=== PATIENT | female | born 1985 | race Caucasian/White ===

== ENCOUNTER 2016-10-29 01:49 | Inpatient (IN) | payer BC ==
[2016-10-29] MEDS ORDERED: Lactated Ringers 1,000 ML ONE (01:55)
[2016-10-29] MEDS ORDERED: Oxytocin/Lactated Ringers 10 UNIT/1,000 ML BAG IV ONE (02:02)
[2016-10-29] MEDS ORDERED: Lidocaine 1% 50 ML MDV ONE (02:46)
[2016-10-29] MEDS ORDERED: Sodium Chloride 0.9% 10 ML Syringe FLUSH PRN (03:22)
[2016-10-29] MEDS ORDERED: Lidocaine 1% 50 ML MDV INJECT ONE (03:22)
[2016-10-29] MEDS ORDERED: Oxytocin/Lactated Ringers 10 UNIT/1,000 ML BAG IV SCH (03:30)
[2016-10-29] MEDS ORDERED: Lactated Ringers 1,000 ML IV SCH (03:30)
--- NOTE | 2016-10-29 03:42 | PCM.SN ---
- Free Text/Narrative Note: Delivery note: She was admitted at approximately 0130 hrs. on 10/29/2016 at approximately 8 cm and in active labor. She progressed to complete shortly thereafter and had 0215 hours had artificial rupture membranes with resultant clear amniotic fluid. Complete cervical dilation was felt to occur at about 0220 hours. Patient then proceeded to push for approximately the next 45 minutes. At this time delivery the baby was noted to be in occiput posterior position. As the baby was a midline episiotomy was made after infiltration with approximately 10 mL of lidocaine 1%. Baby delivered in direct occiput posterior position at 0305 hrs. The baby weighed 3440 g (7 lbs. 9 oz) and had Apgars of 8 and 9. Baby was then placed on mom's abdomen. The cord was noted to be wrapped around one of the baby's legs. Cords clamped 2 cut and cord blood was obtained. Episiotomy is repaired in a routine fashion using 3-0 Monocryl suture. Patient tolerated this reasonably well. The placenta delivered spontaneously in a Ortiz presentation. It appeared intact and complete. The umbilical cord had 3 vessels. Pitocin was administered after delivery of the baby to facilitate increase in uterine tone and decrease bleeding. Patient plans to nurse. Estimated blood loss: 300 mL. Condition: Good
[2016-10-29] MEDS ORDERED: Witch Hazel Medicated Pads 100/Jar TOP PRN (03:47)
[2016-10-29] MEDS ORDERED: Acetaminophen 325 MG Tab PO PRN (03:47)
[2016-10-29] MEDS ORDERED: Lanolin 100% Cream 7 GM Tube TOP PRN (03:47)
[2016-10-29] MEDS ORDERED: Docusate Sodium 100 MG Cap PO PRN (03:47)
[2016-10-29] MEDS ORDERED: Benzocaine/Menthol 20%-0.5% Spray 56 GM Canister TOP PRN (03:47)
[2016-10-29] MEDS: Ibuprofen 600 MG Tab PO PRN ×3 (03:52→16:37)
--- NOTE | 2016-10-29 09:10 | HP ---
DATE OF ADMISSION: 10/29/2016 ADMISSION DIAGNOSIS: 38 and 6/7th weeks intrauterine , active labor with advanced cervical dilation. HISTORY OF PRESENT ILLNESS: The patient is a 31-year-old, 3, now para 2-1-0-3, as this admission history and physical is dictated after her delivery. The patient was admitted to Labor and Delivery at approximately 0130 hours on 10/29/2016, in active labor. She was 8 cm dilated and proceeded to delivery within the next approximately 1 hour. Contractions started earlier in the day. She had a clinic appointment earlier in the day and was found to be 2 to 3 cm dilated at that time. She was complaining of contractions at that point. PROMOTIONS OFFICER HISTORY: 3, now para 2-1-0-3. Certain last menstrual period was 01/31/2016, giving an CHAIM of 11/06/2016. This LMP dating was supported by 2 ultrasounds. The first one was done on 04/23/2016 at 12 weeks' gestational age. The second one was done on 06/26/2016 at 21 weeks' gestational age. The patient has regular menstrual cycles at q.28 to 30 days. Menarche was at age 11. Positive HCG was on 03/02/2016. She was not on any controls at the time of conception. Her previous deliveries include: 1. Female infant, born 09/16/2012, at 35 weeks gestational age after 3 hours of labor-5 pounds 0 ounce-[place], [place]-child's name is Caio. 2. Female , born 01/26/2014, at 39 weeks gestational age-7 pounds 5 ounces-normal spontaneous vaginal delivery, in [place], [place]. The patient was at bedrest during the latter part of that because of contractions. Child's name is Daphnie. Her course was significant for cervical change and contractions. The patient plans to breastfeed. She declined any genetic evaluation. Her group-B strep screen was negative. She did have some irritable bowel symptomatology. Her first visit was at 11 weeks and 6 days. The patient made good progress during the course of the . Her weight gain was from 124.4 pounds at first visit to 152.2 pounds for a 28-pound weight gain. Her vital signs have been stable throughout the and her fundal height growth was appropriate. laboratory testing shows blood to be A positive with a negative antibody screen. Her hemoglobin at first oleg visit was 13.0 grams/dL. MCV was 81.9. Her platelet count was 196,000. She is rubella immune. RPR is nonreactive. Urine culture initially was unremarkable. Hepatitis B surface antigen and HIV assays were negative. Her Chlamydia and GC cultures were negative. TSH was 1.464 milliunits/L. Second trimester labs included a hemoglobin of 11.6, an MCV of 87.8, and platelets of 207,000. Her 1-hour GTT was normal at 115. Group-B strep screen was negative. The patient had additional labs including an H. pylori on 04/19/2016, which was negative. Two fibronectin and one AmniSure during the course of the returned negative. ALLERGIES: Sulfa, which causes a rash; and penicillin, which causes a rash. PAST MEDICAL HISTORY: 1. Normal spontaneous vaginal delivery x2, one at 35 weeks and one at 39 weeks. 2. Irritable bowel syndrome with occasional diarrhea. 3. History of anxiety, was on medication in the past. 4. Seasonal allergies, for which she has taken Zyrtec. 5. Abnormal Pap smear in 2009 and again in 2016. PAST SURGICAL HISTORY: 1. Appendectomy in 1991. 2. Laparoscopic cholecystectomy in 2004. 3. Left arm axillary area-fatty tumor removal in 2012. 4. Oral surgery-wisdom teeth in 2001. FAMILY HISTORY: Mother and father alive and in generally good health. Two sisters and one brother alive and well. Maternal grandmother is secondary to throat cancer-was a smoker. Maternal grandfather from an [place] in his 60s. Paternal grandmother is alive and well. Paternal grandfather is alive and well. No blood clotting, anesthesia or problems noted in the family, other than a sister has had labor symptoms. Mother also had some hemorrhage problems. REVIEW OF SYSTEMS: SKIN: Negative. CARDIOVASCULAR: No chest pain or exercise intolerance. RESPIRATORY: No problems with infectious symptoms or shortness of breath. BREASTS: Changes associated with only. GI: Irritable bowel symptoms with some diarrhea noted. : Symptoms associated with , changes in body habitus associated with . MUSCULOSKELETAL: Some minimal lower extremity swelling at times, none at the present time. No other concerns noted. NEUROLOGIC: Negative. PHYSICAL EXAMINATION: GENERAL: The patient is a well-developed, well-nourished, pleasant female of stated age, in no acute distress. VITAL SIGNS: At first visit, her height was 5 feet 5 inches, and her weight was 124.4 pounds with a body mass index of 20.3. Her weight at the end of the was 162.2 pounds. Her blood pressure at last visit was 124/70 and heart rate was 123. SKIN: Warm and dry without lesions. LUNGS: Clear with good breath sounds in all lung white. CARDIOVASCULAR: Regular rate and rhythm. The patient is in labor. ABDOMEN: Protuberant in . BREASTS: Exam was deferred. CERVICAL: Exam on admission to the hospital shows cervix to be 8 cm, bulging bag of water, 100% effaced, anterior. Baby in the occiput-posterior position. EXTREMITIES AND NEUROLOGIC: Grossly within normal limits. ASSESSMENT: 1. 38 and 6/7th weeks intrauterine , active labor, with delivery prior to the dictation of this history and physical. 2. Group-B strep screen negative. 3. The patient plans nursing. 4. The patient had midline episiotomy, which was repaired in the routine fashion with lidocaine anesthesia. PLAN: 1. Routine care. 2. Nursing support and nursing diet recommend. 3. Analgesia including acetaminophen and ibuprofen. 4. CBC to be drawn in the a.m. MMODAL /[id number]
--- NOTE | 2016-10-29 10:00 | PCM.SN ---
- Free Text/Narrative Note: delivery note: Subjective: - Lochia appropriate amount. Is voiding and walking. - No further concerns Objective: - Uterus firm and nontender, located at level of umbilicus - Legs nontender with no swelling Assessment: - 31-year-old, G3, now P2103 s/p doing well. PPD 0 (delivered early this morning). - Currently breast feeding Plan: - Routine care
[2016-10-29] MEDS: Prenatal Multivitamin with Calcium/Folic Acid/Iron Tab PO SCH (19:44)
[2016-10-30] MEDS: Ibuprofen 600 MG Tab PO PRN ×3 (00:31→11:44)
[2016-10-30 14:32] VITALS: BP 90/54
[2016-10-30] MEDS: Prenatal Multivitamin with Calcium/Folic Acid/Iron Tab PO SCH (14:39)
--- NOTE | 2016-11-01 13:23 | PCM.DCSUM1 ---
Discharge Summary - Hospital Course Free Text/Narrative:: [facility], [place] [facility] Provider Simple Note Patient Name: JOSÉ MIGUEL MURPHY Date of : 81 Patient Status: Inpatient Attending Provider: Shaggy Rosado Date: 10/29/16 03:35 Initialization Date: 10/29/16 03:35 - Free Text/Narrative Note: Delivery note: She was admitted at approximately 0130 hrs. on 10/29/2016 at approximately 8 cm and in active labor. She progressed to complete shortly thereafter and had 0215 hours had artificial rupture membranes with resultant clear amniotic fluid. Complete cervical dilation was felt to occur at about 0220 hours. Patient then proceeded to push for approximately the next 45 minutes. At this time delivery the baby was noted to be in occiput posterior position. As the baby was a midline episiotomy was made after infiltration with approximately 10 mL of lidocaine 1%. Baby delivered in direct occiput posterior position at 0305 hrs. The baby weighed 3440 g (7 lbs. 9 oz) and had Apgars of 8 and 9. Baby was then placed on mom's abdomen. The cord was noted to be wrapped around one of the baby's legs. Cords clamped 2 cut and cord blood was obtained. Episiotomy is repaired in a routine fashion using 3-0 Monocryl suture. Patient tolerated this reasonably well. The placenta delivered spontaneously in a Ortiz presentation. It appeared intact and complete. The umbilical cord had 3 vessels. Pitocin was administered after delivery of the baby to facilitate increase in uterine tone and decrease bleeding. Patient plans to nurse. Estimated blood loss: 300 mL. Condition: Good HPI Initial Comments: [facility], [place] [facility] Provider Simple Note Patient Name: JOSÉ MIGUEL MURPHY Date of : 81 Patient Status: Inpatient Attending Provider: Shaggy Rosado Date: 10/29/16 03:35 Initialization Date: 10/29/16 03:35 - Free Text/Narrative Note: Delivery note: She was admitted at approximately 0130 hrs. on 10/29/2016 at approximately 8 cm and in active labor. She progressed to complete shortly thereafter and had 0215 hours had artificial rupture membranes with resultant clear amniotic fluid. Complete cervical dilation was felt to occur at about 0220 hours. Patient then proceeded to push for approximately the next 45 minutes. At this time delivery the baby was noted to be in occiput posterior position. As the baby was a midline episiotomy was made after infiltration with approximately 10 mL of lidocaine 1%. Baby delivered in direct occiput posterior position at 0305 hrs. The baby weighed 3440 g (7 lbs. 9 oz) and had Apgars of 8 and 9. Baby was then placed on mom's abdomen. The cord was noted to be wrapped around one of the baby's legs. Cords clamped 2 cut and cord blood was obtained. Episiotomy is repaired in a routine fashion using 3-0 Monocryl suture. Patient tolerated this reasonably well. The placenta delivered spontaneously in a Ortiz presentation. It appeared intact and complete. The umbilical cord had 3 vessels. Pitocin was administered after delivery of the baby to facilitate increase in uterine tone and decrease bleeding. Patient plans to nurse. Estimated blood loss: 300 mL. Condition: Good Brief History: [facility], [place] [facility] . Provider Simple Note. Patient Name : JOSÉ MIGUEL MURPHY Record Number: [id number]. Date of : Patient Status: Inpatient. Attending Provider: Shaggy Rosado FAccount Number : [id number]. Date: 10/29/16 03:35Initialization Date: 10/29/16 03:35. - Free Text/Narrative. Note: Delivery note: She was admitted at approximately 0130 hrs. on 10/29/2016 at approximately 8 cm and in active labor. She progressed to complete shortly thereafter and had 0215 hours had artificial rupture membranes with resultant clear amniotic fluid. Complete cervical dilation was felt to occur at about 0220 hours. Patient then proceeded to push for approximately the next 45 minutes. At this time delivery the baby was noted to be in occiput posterior position. As the baby was a midline episiotomy was made after infiltration with approximately 10 mL of lidocaine 1% . Baby delivered in direct occiput posterior position at 0305 hrs. The baby weighed 3440 g (7 lbs. 9 oz) and had Apgars of 8 and 9. Baby was then placed on mom's abdomen. The cord was noted to be wrapped around one of the baby's legs. Cords clamped 2 cut and cord blood was obtained. Episiotomy is repaired in a routine fashion using 3-0 Monocryl suture. Patient tolerated this reasonably well. The placenta delivered spontaneously in a Ortiz presentation. It appeared intact and complete. The umbilical cord had 3 vessels. Pitocin was administered after delivery of the baby to facilitate increase in uterine tone and decrease bleeding. Patient plans to nurse. Estimated blood loss: 300 mL. Condition: Good - Discharge Data Discharge Date: 10/30/16 Discharge Disposition: Home, Self-Care 01 Condition: Good - Discharge Diagnosis/Problem(s) (1) Occiput posterior presentation of fetus SNOMED Code(s): 81152479 ICD Code: O64.0XX0 - OBSTRUCTED LABOR DUE TO INCMPL ROTATION OF HEAD, UNSP Status: Acute Qualifiers: Fetus number: single or unspecified fetus Qualified Code(s): O64.0XX0 - Obstructed labor due to incomplete rotation of head, not applicable or unspecified (2) 39 weeks gestation of SNOMED Code(s): 65898654 ICD Code: Z3A.39 - 39 WEEKS GESTATION OF Status: Acute (3) 39 weeks gestation of SNOMED Code(s): 79218017 ICD Code: Z3A.39 - 39 WEEKS GESTATION OF Status: Acute (4) Direct occiput posterior presentation of fetus SNOMED Code(s): 529076654 ICD Code: O64.0XX0 - OBSTRUCTED LABOR DUE TO INCMPL ROTATION OF HEAD, UNSP Status: Acute Qualifiers: Fetus number: single or unspecified fetus Qualified Code(s): O64.0XX0 - Obstructed labor due to incomplete rotation of head, not applicable or unspecified - Patient Summary/Data Complications: none Consults: none Hospital Course: uneventful - Patient Instructions Diet: Regular Diet as Tolerated Driving: Do Not Drive (48 hrs) Showering/Bathing: May Shower Notify Provider of: Fever, Increased Pain, Swelling and Redness, Drainage, Nausea and/or Vomiting - Discharge Plan Home Medications: Home Meds Vit 90/Iron Fum/Folic [ Formula] 1 tab PO DAILY 02/07/14 [ History] Acetaminophen/oxyCODONE [Percocet 325-5 MG] 1 - 2 tab PO Q4H PRN #60 tab [Rx] Acetaminophen [Tylenol] 650 mg PO Q6H PRN tablet 10/30/16 [Rx] Benzocaine/Menthol [Dermoplast Pain Relief [place]] 1 spray TOP ASDIRECTED PRN canister 10/30/16 [Rx] Docusate Sodium [Colace] 100 mg PO BID PRN cap 10/30/16 [Rx] Ibuprofen [IJD: Ibuprofen] 600 mg PO Q6H PRN tablet 10/30/16 [Rx] Lanolin [Lansinoh HPA] 1 applic TOP ASDIRECTED PRN tube 10/30/16 [Rx] Witch Letty [Tucks] 1 pad TOP ASDIRECTED PRN pad 10/30/16 [Rx] Patient Handouts: Episiotomy, Home Care Instructions for Mom Referrals: Shaggy Rosado MD [Primary Care Provider] - (6 weeks follow up in clinic. please call for appointment. ) - Discharge Summary/Plan Comment DC Time >30 min.: No - Patient Data Vitals - Most Recent: Last Vital Signs Temp 98.2 F 10/30/16 13:37 Pulse 77 10/30/16 13:37 Resp 18 10/30/16 13:37 BP 90/54 L 10/30/16 13:37 Pulse Ox 98 10/30/16 13:37 Weight - Most Recent: 150 lb Med Orders - Current: Current Medications Discontinued Medications Acetaminophen (Tylenol) 650 mg PO Q4H PRN PRN Reason: mild pain or fever Benzocaine/Menthol (Dermoplast Pain Relief [place]) 0 gm TOP ASDIRECTED PRN PRN Reason: Perineal Comfort Measure Last Admin: 10/29/16 03:53 Dose: 1 can Docusate Sodium (Colace) 100 mg PO BID PRN PRN Reason: Constipation Last Admin: 10/29/16 19:44 Dose: 100 mg Emollient Ointment (Lansinoh Hpa) 0 gm TOP ASDIRECTED PRN PRN Reason: Sore Nipples Last Admin: 10/29/16 17:12 Dose: 1 applic Oxytocin/Lactated Ringer's (Pitocin In Lr 10 Units/1,000 Ml) Confirm Administered Dose 10 unit in 1,000 mls @ as directed IV .STK-MED ONE Stop: 10/29/16 02:03 Last Admin: 10/29/16 03:07 Dose: 1 unit Lactated Ringer's (Ringers, Lactated) 1,000 mls @ 100 mls/hr IV ASDIRECTED DAYANA Oxytocin/Lactated Ringer's (Pitocin In Lr 10 Units/1,000 Ml) 10 unit in 1,000 mls @ 500 mls/hr IV .CONTINUOUS DAYANA Ibuprofen (Motrin) 600 mg PO Q4H PRN PRN Reason: Mild pain or fever Last Admin: 10/30/16 11:44 Dose: 600 mg Lidocaine HCl (Xylocaine 1%) Confirm Administered Dose 50 ml .ROUTE .STK-MED ONE Stop: 10/29/16 02:47 Last Admin: 10/29/16 03:02 Dose: 50 ml Lidocaine HCl (Xylocaine 1%) 50 ml INJECT ONETIME ONE Stop: 10/29/16 03:23 Last Admin: 10/29/16 03:47 Dose: Not Given Prenat Multivit/Adult Education Professional/Iron/Folic Ac ( Plus Iron) 1 each PO DAILY [facility] Last Admin: 10/30/16 14:39 Dose: Not Given Sodium Chloride (Saline Flush) 10 ml FLUSH ASDIRECTED PRN PRN Reason: Keep Vein Open Wittaryn Saenz (Tucks) 1 pad TOP ASDIRECTED PRN PRN Reason: Hemorrhoid pain Last Admin: 10/29/16 03:53 Dose: 1 can *Q Meaningful Use (DIS) - VTE *Q VTE Criteria *Q: - Stroke *Q Stroke Criteria *Q: - AMI *Q AMI Criteria *Q:
== END 2016-10-30 17:00 | disposition home or self-care (01) | DRG 560 ==
LOC: JD.OBCHECK 01:49 → JD.OB 01:49 → JD.OBCHECK 01:59 → JD.OB 02:00 → OBSVTOIN 03:05 → JD.OB 03:05
PROVIDERS: ADMIT Obstetrics & Gynecology; ATTEND Obstetrics & Gynecology
PROC: 10E0XZZ Delivery of Products of Conception, External Approach (ICD-10-PCS; principal; 2016-10-29)
PROC: 10907ZC Drainage of Amniotic Fluid, Therapeutic from Products of Conception, Via Natural or Artificial Opening (ICD-10-PCS; 2016-10-29)
PROC: 0W8NXZZ Division of Female Perineum, External Approach (ICD-10-PCS; 2016-10-29)
DX: O70.9 Perineal laceration during delivery, unspecified (principal); Z3A.39 39 weeks gestation of pregnancy; Z37.0 Single live birth; Z88.0 Allergy status to penicillin; Z88.2 Allergy status to sulfonamides
CPT/HCPCS: 36415; 59409; 85027; A9270-GY; J2590; J7120

== ENCOUNTER 2020-11-06 03:04 | Inpatient (IN) | payer BC ==
[~2020-11-06 03:04] MED LIST: ePHEDrine 50 MG/ML SDV ONE
[2020-11-06] MEDS ORDERED: Sodium Chloride 0.9% 10 ML Syringe FLUSH PRN (03:14)
[2020-11-06] MEDS ORDERED: Nalbuphine 10 MG/1 ML Vial IVPUSH PRN (03:14)
[2020-11-06] MEDS ORDERED: Acetaminophen 325 MG Tab PO PRN ×2 (03:14→13:22)
[2020-11-06] MEDS ORDERED: Calcium Carbonate 500 MG Tab.Chew PO PRN (03:14)
[2020-11-06] MEDS ORDERED: Ondansetron 4 MG/2 ML SDV IVPUSH PRN (03:14)
[2020-11-06] MEDS ORDERED: Oxytocin/Lactated Ringers 10 UNIT/1,000 ML BAG IV SCH ×2 (03:15)
[2020-11-06] MEDS: Lactated Ringers 1,000 ML IV SCH ×2 (04:06→06:32)
[2020-11-06] MEDS ORDERED: fentaNYL 100 MCG/2 ML SDV EPIDUR PRN (06:14)
[2020-11-06] MEDS ORDERED: diphenhydrAMINE 50 MG/ML SDV IVPUSH PRN (06:14)
[2020-11-06] MEDS ORDERED: Bupivacaine/fentaNYL/NS 100 ML Bag EPIDUR PRN (06:14)
[2020-11-06] MEDS ORDERED: ePHEDrine 50 MG/ML SDV IVPUSH PRN (06:14)
--- NOTE | 2020-11-06 06:44 | PCM.PREANE ---
Preanesthetic Assessment - Procedure Proposed Procedure: Epidural - Anesthesia/Transfusion/Family Hx Anesthesia History: Prior Anesthesia Without Reaction Family History of Anesthesia Reaction: No Transfusion History: No Prior Transfusion(s) Intubation History: Unknown - Physical Assessment NPO Status Date: 11/06/20 Vital Signs: Last Vital Signs Temp 36.7 C 11/06/20 03:20 Pulse 78 11/06/20 03:20 Resp 16 11/06/20 03:20 BP 114/73 11/06/20 03:20 Pulse Ox 99 11/06/20 03:20 Height: 1.65 m Weight: 77.882 kg ASA Class: 2 Mental Status: Alert & Oriented x3 - Lab Values: Laboratory Last Values WBC 7.20 K/mm3 (3.98-10.04) 11/06/20 03:30 RBC 4.34 M/mm3 (3.98-5.22) 11/06/20 03:30 Hgb 12.4 gm/dl (11.2-15.7) 11/06/20 03:30 Hct 37.6 % (34.1-44.9) 11/06/20 03:30 MCV 86.6 fl (79.4-94.8) D 11/06/20 03:30 MCH 28.6 pg (25.6-32.2) 11/06/20 03:30 MCHC 33.0 g/dl (32.2-35.5) 11/06/20 03:30 RDW Std Deviation 42.9 fL (36.4-46.3) 11/06/20 03:30 Plt Count 142 K/mm3 (182-369) L 11/06/20 03:30 MPV 10.3 fl (9.4-12.3) 11/06/20 03:30 Neut % (Auto) 64.6 % (34.0-71.1) 11/06/20 03:30 Lymph % (Auto) 23.2 % (19.3-51.7) 11/06/20 03:30 [place] % (Auto) 9.3 % (4.7-12.5) 11/06/20 03:30 Eos % (Auto) 1.9 (0.7-5.8) 11/06/20 03:30 Baso % (Auto) 0.3 % (0.1-1.2) 11/06/20 03:30 Neut # (Auto) 4.65 K/mm3 (1.56-6.13) 11/06/20 03:30 Lymph # (Auto) 1.67 K/mm3 (1.18-3.74) 11/06/20 03:30 [place] # (Auto) 0.67 K/mm3 (0.24-0.36) H 11/06/20 03:30 Eos # (Auto) 0.14 K/mm3 (0.04-0.36) 11/06/20 03:30 Baso # (Auto) 0.02 K/mm3 (0.01-0.08) 11/06/20 03:30 SARS-CoV-2 RNA (DONNA) Negative (NEGATIVE) 11/06/20 03:25 Blood Type A POSITIVE 11/06/20 03:30 Gel Antibody Screen Negative 11/06/20 03:30 Above labs reviewed and noted and within acceptable ranges to proceed with epidural if desired. - Allergies Allergies/Adverse Reactions: Allergies Allergy/AdvReac Type Severity Reaction Status Date / Time Penicillins Allergy Rash Verified 11/06/20 04:24 Sulfa (Sulfonamide Allergy Rash Verified 11/06/20 04:24 Antibiotics) - Anesthesia Plan Pre-Op Medication Ordered: None - Acknowledgements Anesthesia Type Planned: Epidural Pt an Appropriate Candidate for the Planned Anesthesia: Yes Alternatives and Risks of Anesthesia Discussed w Pt/Guardian: Yes Pt/Guardian Understands and Agrees with Anesthesia Plan: Yes PreAnesthesia Questionnaire HEENT History: Reports: None Other HEENT History: Conductive hearing loss left ear Gastrointestinal History: Reports: Irritable Bowel Syndrome INVENTORY CONTROL ASSISTANT History: Reports: Musculoskeletal History: Reports: None Psychiatric History: Reports: Anxiety - Past Surgical History HEENT Surgical History: Reports: Oral Surgery GI Surgical History: Reports: Appendectomy, Cholecystectomy Musculoskeletal Surgical History: Reports: Other (See Below) Other Musculoskeletal Surgeries/Procedures:: left arm fatty tumor removed - SUBSTANCE USE Tobacco Use Status *Q: Never Tobacco User Tobacco Use Within Last Twelve Months: No Second Hand Smoke Exposure: No Recreational Drug Use History: No - HOME MEDS Home Medications: Home Meds Vit 90/Iron Fum/Folic [ Formula] 1 tab PO DAILY 02/07/14 [History] Omeprazole Magnesium [Prilosec] 1 pkt PO DAILY PRN 11/06/20 [History] - CURRENT (IN HOUSE) MEDS Current Meds: Current Medications Acetaminophen (Acetaminophen 325 Mg Tab) 650 mg PO Q4H PRN PRN Reason: Pain (Mild 1-3) and fever Calcium Carbonate/Glycine (Calcium Carbonate 500 Mg Tab.Chew) 1,000 mg PO Q2H PRN PRN Reason: Indigestion Diphenhydramine HCl (Diphenhydramine 50 Mg/Ml Sdv) 25 mg IVPUSH Q6H PRN PRN Reason: pruritis Ephedrine Sulfate (Ephedrine 50 Mg/Ml Sdv) 5 mg IVPUSH ASDIRECTED PRN PRN Reason: Hypotension Fentanyl (Fentanyl 100 Mcg/2 Ml Sdv) 100 mcg EPIDUR Q3H PRN PRN Reason: Pain Last Admin: 11/06/20 06:26 Dose: 100 mcg Documented by: Fentanyl/Bupivacaine HCl (Bupivacaine/Fentanyl/Ns 100 Ml Bag) 100 ml EPIDUR ASDIRECTED PRN PRN Reason: Pain Last Admin: 11/06/20 06:27 Dose: 100 ml Documented by: Oxytocin/Lactated Ringer's (Pitocin In Lr 10 Units/1,000 Ml) 10 unit in 1,000 mls @ 12 mls/hr IV TITRATE DAYANA; Protocol Last Titration: 11/06/20 04:45 Dose: 4 munits/min, 24 mls/hr Documented by: Oxytocin/Lactated Ringer's (Pitocin In Lr 10 Units/1,000 Ml) 10 unit in 1,000 mls @ 500 mls/hr IV .CONTINUOUS DAYANA Lactated Ringer's (Ringers, Lactated) 1,000 mls @ 100 mls/hr IV ASDIRECTED DAYANA Last Admin: 11/06/20 06:32 Dose: 100 mls/hr Documented by: Nalbuphine HCl (Nalbuphine 10 Mg/1 Ml Vial) 10 mg IVPUSH Q2H PRN PRN Reason: Pain Ondansetron HCl (Ondansetron 4 Mg/2 Ml Sdv) 4 mg IVPUSH Q4H PRN PRN Reason: Nausea/Vomiting Sodium Chloride (Sodium Chloride 0.9% 10 Ml Syringe) 10 ml FLUSH ASDIRECTED PRN PRN Reason: Keep Vein Open
--- NOTE | 2020-11-06 06:53 | PCM.PREANE ---
Preanesthetic Assessment - Procedure Proposed Procedure: epidural - Anesthesia/Transfusion/Family Hx Anesthesia History: Prior Anesthesia Without Reaction Family History of Anesthesia Reaction: No Transfusion History: No Prior Transfusion(s) Intubation History: Unknown - Review of Systems General: Fatigue Pulmonary: No Symptoms Cardiovascular: No Symptoms Gastrointestinal: Abdominal Pain (labor) Neurological: No Symptoms Other: Reports: None - Physical Assessment NPO Status Date: 11/06/20 Vital Signs: Last Vital Signs Temp 36.7 C 11/06/20 03:20 Pulse 78 11/06/20 03:20 Resp 16 11/06/20 03:20 BP 114/73 11/06/20 03:20 Pulse Ox 99 11/06/20 03:20 Height: 1.65 m Weight: 77.882 kg ASA Class: 2 Mental Status: Alert & Oriented x3 Airway Class: Mallampati = 1 Dentition: Reports: Normal Dentition Thyro-Mental Finger Breadths: 3 Mouth Opening Finger Breadths: 3 ROM/Head Extension: Full Lungs: Clear to Auscultation, Normal Respiratory Effort Cardiovascular: Regular Rate, Regular Rhythm - Lab Values: Laboratory Last Values WBC 7.20 K/mm3 (3.98-10.04) 11/06/20 03:30 RBC 4.34 M/mm3 (3.98-5.22) 11/06/20 03:30 Hgb 12.4 gm/dl (11.2-15.7) 11/06/20 03:30 Hct 37.6 % (34.1-44.9) 11/06/20 03:30 MCV 86.6 fl (79.4-94.8) D 11/06/20 03:30 MCH 28.6 pg (25.6-32.2) 11/06/20 03:30 MCHC 33.0 g/dl (32.2-35.5) 11/06/20 03:30 RDW Std Deviation 42.9 fL (36.4-46.3) 11/06/20 03:30 Plt Count 142 K/mm3 (182-369) L 11/06/20 03:30 MPV 10.3 fl (9.4-12.3) 11/06/20 03:30 Neut % (Auto) 64.6 % (34.0-71.1) 11/06/20 03:30 Lymph % (Auto) 23.2 % (19.3-51.7) 11/06/20 03:30 [place] % (Auto) 9.3 % (4.7-12.5) 11/06/20 03:30 Eos % (Auto) 1.9 (0.7-5.8) 11/06/20 03:30 Baso % (Auto) 0.3 % (0.1-1.2) 11/06/20 03:30 Neut # (Auto) 4.65 K/mm3 (1.56-6.13) 11/06/20 03:30 Lymph # (Auto) 1.67 K/mm3 (1.18-3.74) 11/06/20 03:30 [place] # (Auto) 0.67 K/mm3 (0.24-0.36) H 11/06/20 03:30 Eos # (Auto) 0.14 K/mm3 (0.04-0.36) 11/06/20 03:30 Baso # (Auto) 0.02 K/mm3 (0.01-0.08) 11/06/20 03:30 SARS-CoV-2 RNA (DONNA) Negative (NEGATIVE) 11/06/20 03:25 Blood Type A POSITIVE 11/06/20 03:30 Gel Antibody Screen Negative 11/06/20 03:30 - Allergies Allergies/Adverse Reactions: Allergies Allergy/AdvReac Type Severity Reaction Status Date / Time Penicillins Allergy Rash Verified 11/06/20 04:24 Sulfa (Sulfonamide Allergy Rash Verified 11/06/20 04:24 Antibiotics) - Anesthesia Plan Pre-Op Medication Ordered: None - Acknowledgements Anesthesia Type Planned: Epidural Pt an Appropriate Candidate for the Planned Anesthesia: Yes Alternatives and Risks of Anesthesia Discussed w Pt/Guardian: Yes Pt/Guardian Understands and Agrees with Anesthesia Plan: Yes PreAnesthesia Questionnaire HEENT History: Reports: None Other HEENT History: Conductive hearing loss left ear Gastrointestinal History: Reports: GERD, Irritable Bowel Syndrome REPRODUCTION ARTIST History: Reports: Musculoskeletal History: Reports: None Psychiatric History: Reports: Anxiety - Past Surgical History HEENT Surgical History: Reports: Oral Surgery GI Surgical History: Reports: Appendectomy, Cholecystectomy Musculoskeletal Surgical History: Reports: Other (See Below) Other Musculoskeletal Surgeries/Procedures:: left arm fatty tumor removed - SUBSTANCE USE Tobacco Use Status *Q: Never Tobacco User Tobacco Use Within Last Twelve Months: No Second Hand Smoke Exposure: No Recreational Drug Use History: No - HOME MEDS Home Medications: Home Meds Vit 90/Iron Fum/Folic [ Formula] 1 tab PO DAILY 02/07/14 [History] Omeprazole Magnesium [Prilosec] 1 pkt PO DAILY PRN 11/06/20 [History] - CURRENT (IN HOUSE) MEDS Current Meds: Current Medications Acetaminophen (Acetaminophen 325 Mg Tab) 650 mg PO Q4H PRN PRN Reason: Pain (Mild 1-3) and fever Calcium Carbonate/Glycine (Calcium Carbonate 500 Mg Tab.Chew) 1,000 mg PO Q2H PRN PRN Reason: Indigestion Diphenhydramine HCl (Diphenhydramine 50 Mg/Ml Sdv) 25 mg IVPUSH Q6H PRN PRN Reason: pruritis Ephedrine Sulfate (Ephedrine 50 Mg/Ml Sdv) 5 mg IVPUSH ASDIRECTED PRN PRN Reason: Hypotension Fentanyl (Fentanyl 100 Mcg/2 Ml Sdv) 100 mcg EPIDUR Q3H PRN PRN Reason: Pain Last Admin: 11/06/20 06:26 Dose: 100 mcg Documented by: Fentanyl/Bupivacaine HCl (Bupivacaine/Fentanyl/Ns 100 Ml Bag) 100 ml EPIDUR ASDIRECTED PRN PRN Reason: Pain Last Admin: 11/06/20 06:27 Dose: 100 ml Documented by: Oxytocin/Lactated Ringer's (Pitocin In Lr 10 Units/1,000 Ml) 10 unit in 1,000 mls @ 12 mls/hr IV TITRATE DAYANA; Protocol Last Titration: 11/06/20 04:45 Dose: 4 munits/min, 24 mls/hr Documented by: Oxytocin/Lactated Ringer's (Pitocin In Lr 10 Units/1,000 Ml) 10 unit in 1,000 mls @ 500 mls/hr IV .CONTINUOUS DAYANA Lactated Ringer's (Ringers, Lactated) 1,000 mls @ 100 mls/hr IV ASDIRECTED DAYANA Last Admin: 11/06/20 06:32 Dose: 100 mls/hr Documented by: Nalbuphine HCl (Nalbuphine 10 Mg/1 Ml Vial) 10 mg IVPUSH Q2H PRN PRN Reason: Pain Ondansetron HCl (Ondansetron 4 Mg/2 Ml Sdv) 4 mg IVPUSH Q4H PRN PRN Reason: Nausea/Vomiting Sodium Chloride (Sodium Chloride 0.9% 10 Ml Syringe) 10 ml FLUSH ASDIRECTED PRN PRN Reason: Keep Vein Open
--- NOTE | 2020-11-06 07:37 | PCM.LDHP ---
L&D History of Present Illness - General Date of Service: 11/06/20 Admit Problem/Dx: Patient Status Order with Admit Dx/Problem 11/06/20 03:15 Patient Status [ADT] Routine Admission Diagnosis/Problem Admission Diagnosis/Problem 11/06/20 07:27 Angelique is a 35-year-old 4 para 2-1-0-3 female at 37-0/7 weeks gestational age with diamniotic twin gestation and an CHAIM of 11/27/2020 admitted for in duction of labor. Source of Information: Patient History Limitations: Reports: No Limitations - History of Present Illness Introduction:: Angelique is a 35-year-old 4 para 2-1-0-3 female at 37-0/7 weeks gestational age with diamniotic twin gestation and an CHAIM of 11/27/2020 admitted for induction of labor. Process and procedure of induction of labor with diamniotic twins the location of the delivery, special preparations to include the possibility of having to do an emergent section, ultrasound documentation of presentation in the operating room/delivery room, presence of OR staff and pediatric staff and other preparatory actions are discussed in detail with the patient and her . They appear to understand, wish to proceed. CHEMIST INORGANIC history: 4 para 2-1-0-3. Menarche at approximately age 11. Cycles q. months. Not using any control time of conception. LMP 02/21/2020 was relatively certain. CHAIM set at 11/27/2020 by LMP and supported by numerous ultrasounds during the . Past obstetrical history includes the followin. Female born 09/16/2014-35 weeks gestational age3 hours of labor5 pounds 0 ouncesNSVDepiduralMer[facility] delivery. Child's name is Caio. 2. Female infant born 01/26/2016-39 weeks gestational age3 hours of labor7 pounds 5 [facility] 35 [facility]. Child's name is Daphnie 3. Male born 10/29/2018-7 pounds 9 ounces-NSVDno anesthesiaprecipitous [facility]. Patient denies any abnormal Pap smears or STIs. history: Patient was first seen for this at 10 weeks gestational age on 05/01/2020. She is seen on a very regular basisweekly for the last 8 weeks. She had monthly growth ultrasounds until 32 weeks after which biophysical profiles were done on at least a weekly basis. She is made good fundal height growth and growth of the baby's has been within normal is. At times the single deepest pocket on twin A was borderline but rebounded with her last evaluation 1 week ago. She reports fair activity bilaterally. Babies have been in vertex presentation continuously since 32 weeks. Weight gain has been from a pregravida weight of 126.2 pounds to a weight of 170.2 pounds for a 44 pound increase. Vital signs been stable throughout the course. Patient has had immunizations for hepatitis B back in 2001. She is rubella immune. Tdap was given on 09/06/2020. Allergies: 1. Sulfa which causes a rash 2. Penicillins which cause a rash Medications: 1. Tums as needed for antacid 2. vitamins 1 daily Past medical history: 1. x3 with one being at 35 weeks gestational age 2. History anxiety on medications at 1 time but not at present. 3. Irritable bowel syndrome 4. Seasonal allergies Past surgical history: 1. Appendectomy 1991 2. Cholecystectomy 2004 3. Left arm fatty tumor removed 2012 4. Oral surgery 2001. Family history: Mother and father are alive in good health. 3 sisters 1 brother alive and well. Maternal grandmother secondary to throat cancerwas a smoker. Maternal grandfather from an [place] in his 60s. Paternal grandmother alive and well. Paternal grandfather alive and well. No clotting abnormalities, or anesthesia problems noted. Mother did have a hemorrhage. Social history: Patient is . 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 She does not use any significance alcohol, drugs or tobacco. She is a college graduate. Her is Aakash. They live in [place], [place] Review of systems: In general patient has no complaints other than leg body habitus changes associated with . Skin: Negative Lungs: No infectious symptoms or shortness of breath Cardiovascular: No chest pain or exercise intolerance Breasts: No lumps, changes in size, pain, dimpling, discharge or axillary or supraclavicular concerns. GI: Negative : changes, occasional contractions. Sometimes decreased movement. Musculoskeletal: Negative Neurological: Negative In general the patient is well-developed, well-nourished, pleasant female of stated age in no acute distress. Skin is warm dry without lesions. HEENT, neck and back within normal limits. Lungs are clear with good breath sounds in all lung white. Cardiovascular exam shows regular and rhythm without murmurs. Breast exam is deferred at this time have been done at first visit and found to be normal. It is not repeated at this time. Patient does plan to breast-feed. Abdomen is gravid with last fundal height in clinic at 46 cm.. Genital digital exam on last evaluation clinic 10/31/2019 and was posterior, 1 to 2 cm dilated, 80% effaced, mid position to posterior position, soft.. Extremities and neurological exam are grossly within normal limits. Pain Score: 0 - Related Data Allergies/Adverse Reactions: Allergies Allergy/AdvReac Type Severity Reaction Status Date / Time Penicillins Allergy Rash Verified 11/06/20 04:24 Sulfa (Sulfonamide Allergy Rash Verified 11/06/20 04:24 Antibiotics) Home Medications: Home Meds Vit 90/Iron Fum/Folic [ Formula] 1 tab PO DAILY 02/07/14 [History] Omeprazole Magnesium [Prilosec] 1 pkt PO DAILY PRN 11/06/20 [History] Past Medical History HEENT History: Reports: None Other HEENT History: Conductive hearing loss left ear Gastrointestinal History: Reports: GERD, Irritable Bowel Syndrome CHEMIST INORGANIC History: Reports: Musculoskeletal History: Reports: None Psychiatric History: Reports: Anxiety - Past Surgical History HEENT Surgical History: Reports: Oral Surgery GI Surgical History: Reports: Appendectomy, Cholecystectomy Musculoskeletal Surgical History: Reports: Other (See Below) Other Musculoskeletal Surgeries/Procedures:: left arm fatty tumor removed Social & Family History - Family History Family Medical History: No Pertinent Family History - Tobacco Use Tobacco Use Status *Q: Never Tobacco User Second Hand Smoke Exposure: No - Caffeine Use Caffeine Use: Reports: None - Recreational Drug Use Recreational Drug Use: No H&P Review of Systems - Review of Systems: Review Of Systems: See Below L&D Exam - Exam Exam: See Below - Vital Signs Vital Signs: Last Vital Signs Temp 36.7 C 11/06/20 03:20 Pulse 78 11/06/20 03:20 Resp 16 11/06/20 03:20 BP 114/73 11/06/20 03:20 Pulse Ox 99 11/06/20 03:20 Weight: 77.882 kg - Patient Data Lab Results Last 24 hrs: Laboratory Results - last 24 hr 11/06/20 11/06/20 11/06/20 Range/Units 03:25 03:30 03:30 WBC 7.20 (3.98-10.04) K/mm3 RBC 4.34 (3.98-5.22) M/mm3 Hgb 12.4 (11.2-15.7) gm/dl Hct 37.6 (34.1-44.9) % MCV 86.6 D (79.4-94.8) fl MCH 28.6 (25.6-32.2) pg MCHC 33.0 (32.2-35.5) g/dl RDW Std Deviation 42.9 (36.4-46.3) fL Plt Count 142 L (182-369) K/mm3 MPV 10.3 (9.4-12.3) fl Neut % (Auto) 64.6 (34.0-71.1) % Lymph % (Auto) 23.2 (19.3-51.7) % [place] % (Auto) 9.3 (4.7-12.5) % Eos % (Auto) 1.9 (0.7-5.8) Baso % (Auto) 0.3 (0.1-1.2) % Neut # (Auto) 4.65 (1.56-6.13) K/mm3 Lymph # (Auto) 1.67 (1.18-3.74) K/mm3 [place] # (Auto) 0.67 H (0.24-0.36) K/mm3 Eos # (Auto) 0.14 (0.04-0.36) K/mm3 Baso # (Auto) 0.02 (0.01-0.08) K/mm3 SARS-CoV-2 RNA (DONNA) Negative (NEGATIVE) Blood Type A POSITIVE Gel Antibody Screen Negative Result Diagrams: 11/06/20 03:30 - Problem List (1) 37 weeks gestation of SNOMED Code(s): 81196842 ICD Code: Z3A.37 - 37 WEEKS GESTATION OF Status: Acute Current Visit: Yes (2) Dichorionic diamniotic twin gestation SNOMED Code(s): 377828376 ICD Code: O30.049 - TWIN , DICHORIONIC/DIAMNIOTIC, UNSP TRIMESTER Status: Acute Current Visit: Yes (3) History of precipitous delivery SNOMED Code(s): 782828624 ICD Code: Z87.59 - PERSONAL HISTORY OF COMP OF PREG, CHLDBRTH AND THE PUERP Status: Acute Current Visit: Yes Problem List Initiated/Reviewed/Updated: Yes Orders Last 24hrs: Active Orders 24 hr Category Date Time Status Patient Status [ADT] Routine ADT 11/06/20 03:15 Active Activity as Tolerated [RC] PFP Care 11/06/20 03:15 Active Communication Order [RC] ASDIRECTED Care 11/06/20 03:15 Active Communication Order [RC] ASDIRECTED Care 11/06/20 06:15 Active Cooling Warming Measures [RC] ASDIRECTED Care 11/06/20 06:14 Active Heart Tones [RC] ASDIRECTED Care 11/06/20 03:15 Active Non Stress Test [RC] PER UNIT ROUTINE Care 11/06/20 03:15 Active Notify Provider [RC] ASDIRECTED Care 11/06/20 06:14 Active Notify Provider [RC] ASDIRECTED Care 11/06/20 06:15 Active Notify Provider [RC] PFP Care 11/06/20 03:15 Active Notify Provider [RC] PRN Care 11/06/20 03:15 Active Oxygen Therapy [RC] ASDIRECTED Care 11/06/20 06:14 Active Peripheral IV Care [RC] . DIRECTED Care 11/06/20 03:15 Active Pulse Oximetry [RC] ASDIRECTED Care 11/06/20 06:14 Active Vital Signs [RC] 03,,, Care 11/06/20 03:15 Active Regular Diet [DIET] Diet 11/06/20 Breakfast Active RAPID PLASMA REAGIN,RPR [CHEM] Routine Lab 11/06/20 03:30 Received Acetaminophen [TylenoL] Med 11/06/20 03:14 Active 650 mg PO Q4H PRN Bupivacaine/fentaNYL/NS [fentaNYL/Bupivacaine/NS 2 MCG- Med 11/06/20 06:14 Active 0.125% 100 ML] 100 ml EPIDUR ASDIRECTED PRN Calcium Carbonate [Tums] Med 11/06/20 03:14 Active 1,000 mg PO Q2H PRN Lactated Ringers [Ringers, Lactated] 1,000 ml Med 11/06/20 03:15 Active IV ASDIRECTED Nalbuphine [Nubain] Med 11/06/20 03:14 Active 10 mg IVPUSH Q2H PRN Ondansetron [Zofran] Med 11/06/20 03:14 Active 4 mg IVPUSH Q4H PRN Oxytocin/Lactated Ringers [Pitocin in LR 10 Units/1,000 Med 11/06/20 03:15 Active ML] 10 unit in 1,000 ml IV .CONTINUOUS Oxytocin/Lactated Ringers [Pitocin in LR 10 Units/1,000 Med 11/06/20 03:15 Active ML] 10 unit in 1,000 ml IV TITRATE Sodium Chloride 0.9% [Saline Flush] Med 11/06/20 03:14 Active 10 ml FLUSH ASDIRECTED PRN diphenhydrAMINE [Benadryl] Med 11/06/20 06:14 Active 25 mg IVPUSH Q6H PRN ePHEDrine [ePHEDrine sulfate] Med 11/06/20 06:14 Active 5 mg IVPUSH ASDIRECTED PRN fentaNYL [Sublimaze] Med 11/06/20 06:14 Active 100 mcg EPIDUR Q3H PRN Electronic Heart Tones Ext w TOCO [WOMSER] Oth 11/06/20 03:15 Ordered Routine Electronic Heart Tones Internal [WOMSER] Per Unit Oth 11/06/20 03:15 Ordered Routine Peripheral IV Insertion Adult [OM.PC] Routine Oth 11/06/20 03:15 Ordered Resuscitation Status Routine Resus Stat 11/06/20 03:14 Ordered Medication Orders Acetaminophen (Acetaminophen 325 Mg Tab) 650 mg PO Q4H PRN PRN Reason: Pain (Mild 1-3) and fever Calcium Carbonate/Glycine (Calcium Carbonate 500 Mg Tab.Chew) 1,000 mg PO Q2H PRN PRN Reason: Indigestion Diphenhydramine HCl (Diphenhydramine 50 Mg/Ml Sdv) 25 mg IVPUSH Q6H PRN PRN Reason: pruritis Ephedrine Sulfate (Ephedrine 50 Mg/Ml Sdv) 5 mg IVPUSH ASDIRECTED PRN PRN Reason: Hypotension Last Admin: 11/06/20 06:45 Dose: 5 mg Documented by: ALIE Fentanyl (Fentanyl 100 Mcg/2 Ml Sdv) 100 mcg EPIDUR Q3H PRN PRN Reason: Pain Last Admin: 11/06/20 06:26 Dose: 100 mcg Documented by: ALIE Fentanyl/Bupivacaine HCl (Bupivacaine/Fentanyl/Ns 100 Ml Bag) 100 ml EPIDUR ASDIRECTED PRN PRN Reason: Pain Last Admin: 11/06/20 06:27 Dose: 100 ml Documented by: ALIE Oxytocin/Lactated Ringer's (Pitocin In Lr 10 Units/1,000 Ml) 10 unit in 1,000 mls @ 12 mls/hr IV TITRATE DAYANA; Protocol Last Titration: 11/06/20 04:45 Dose: 4 munits/min, 24 mls/hr Documented by: Admin: 11/06/20 04:07 Dose: 2 munits/min, 12 mls/hr Documented by: ALIE Oxytocin/Lactated Ringer's (Pitocin In Lr 10 Units/1,000 Ml) 10 unit in 1,000 mls @ 500 mls/hr IV .CONTINUOUS DAYANA Lactated Ringer's (Ringers, Lactated) 1,000 mls @ 100 mls/hr IV ASDIRECTED DAYANA Last Admin: 11/06/20 06:32 Dose: 100 mls/hr Documented by: Infusion: 11/06/20 06:32 Dose: 100 mls/hr Documented by: Admin: 11/06/20 04:06 Dose: 100 mls/hr Documented by: ALIE Nalbuphine HCl (Nalbuphine 10 Mg/1 Ml Vial) 10 mg IVPUSH Q2H PRN PRN Reason: Pain Ondansetron HCl (Ondansetron 4 Mg/2 Ml Sdv) 4 mg IVPUSH Q4H PRN PRN Reason: Nausea/Vomiting Sodium Chloride (Sodium Chloride 0.9% 10 Ml Syringe) 10 ml FLUSH ASDIRECTED PRN PRN Reason: Keep Vein Open Assessment/Plan Comment:: Luciana Merino is a 35-year-old 4 para 2-1-0-3 female at 37-0/7 weeks gestational age with diamniotic twin gestation and an CHAIM of 11/27/2020 admitted for induction of labor. 2. Patient plans to breast-feed 3. Epidural is okay with patient 4. Group B strep screen negative 5. Patient has had her Tdap. 6. Patient is rubella immune. 7. Risk factors for include: Twin gestation, history of precipitous delivery, distance from the hospital, history of delivery. Plan: 1. Plan for induction of labor with Pitocin 2. Epidural per patient 3. Predelivery preparation as far as anesthesia, pediatrics of etc. concern. 4. Support breast-feeding decision.
[2020-11-06] MEDS ORDERED: Metoclopramide 10 MG/2 ML SDV IVPUSH ONE (07:57)
[2020-11-06] MEDS ORDERED: Citric Acid/Sodium Citrate Solution 30 ML Cup PO ONE (07:58)
[2020-11-06] MEDS ORDERED: Bupivacaine 0.25% 10 ML SDV ONE (08:00)
[2020-11-06] MEDS ORDERED: Lactated Ringers 1,000 ML ONE (10:44)
--- NOTE | 2020-11-06 11:47 | PCM.SN.2 ---
- Free Text/Narrative Note: Anesthesia Note: Start: 1039 Stop: 1130 Anesthesia requested to be on stand by for twin vaginal located in OR#1. Monitors applied, with OB nurses, OR nurse Erin at hand along with Dr. Rosado and Dr. Freeman. Twin A born 1052: 6#15oz, 3160 grams. Apgors: 09/25. Twin B born 1126: 6#6oz, 2890 grams. Apgors: 10/26. Total fluids: 200ml's LR Blood Loss: 50ml's Anesthesia released from services with Patient and infants doing well. Thank you! Andreea STRAW HAT BRIM CUTTER OPERATOR Time Documentation
[2020-11-06] MEDS: Misoprostol 200 MCG Tab PO SCH ×3 (11:50→16:07)
[2020-11-06] MEDS: Oxytocin/Lactated Ringers 20 UNIT/1,000 ML BAG IV SCH ×2 (11:50→13:00)
[2020-11-06] MEDS ORDERED: ePHEDrine 50 MG/ML SDV ONE (11:55)
--- NOTE | 2020-11-06 12:14 | PCM.SN.2 ---
- Free Text/Narrative Note: Delivery note: Stage I: Angelique is a 35-year-old 4 para 2-1-0-3 female at 37-0/7 weeks gestational age with diamniotic twin gestation and an CHAIM of 11/27/2020 admitted for induction of labor. She was admitted approximately 300 hours on 11/06/2020. Pitocin was initially started as the station was approximate -2-3 and the cervix was somewhat posterior. It was 1 to 2 cm, 80% effaced, soft. First baby was presenting cephalically. Pitocin was continued and increased to approximately 6 milliunits/h. With this patient had good contractions coming every 2 to 4 minutesstrong in intensity 5 to 60 seconds. The patient underwent an epidural for labor analgesia. She steadily made good progress to approxim ately 8 to 9 cm approximately at approximately 1030 hrs. At this time AROM was accomplished with the first clear fluid resulted. At that time patient was transferred to the operating room for delivery. The OR crew, anesthesia department at pediatrics department were informed of the patient's aggression and status. heart tones were reassuring throughout the course of labor. Vital signs were stable throughout the course of labor. Stage II: Angelique delivered twin A spontaneously at 1052 hrs. on 11/06/2020 in a right occiput anterior position. There was a shoulder cord which was reduced over the baby's body. Baby is completely delivered with gentle downward and then upward deliver the shoulders. The baby was placed on mom's abdomen and dried with warm blanket. Nose and mouth were bulb suctioned. The umbilical cord was allowed to pulsate for 2 to 3 minutes clamped and then was cut by the baby's father shad. Twin A's Cord blood was obtained after delivery of the second baby. The umbilical cord had 3 vessels. It was a large cord with a significant bout of Drifting's jelly. 3 vessels were noted. A small second- degree laceration occurred. Twin a weight 6 pounds 15 ounces (3160 g), had Apgars of 7 and 9 at 1 and 5 minutes and had a length of 19 inches. Baby was taken to the warmer and to the attendance of Dr. Freeman. Twin B was then noted, after delivery of twin A to be in a vertex presentation. This was confirmed by exam and ultrasound. Pitocin rate was increased to 15 milliunits/mL and with time traction was returned. They were every 2-3 minutes and moderate in intensity. Bag of green remained intact at this time. They had was allowed to descend down and become well engaged in the pelvis at which time AROM was undertaken with resultant clear amniotic fluid. At 1132 hrs. on 11/06/2020 patient delivered twin B, a female infant, in a direct occiput ant erior position. Shoulders were delivered with gentle downward then upward traction and baby was placed on mom's abdomen. She was dried with a warm blanket suction. At this time Pitocin was increased to 999 cc an hour with solution of 10 units in liter duration. This to facilitate increase in uterine tone and decrease likelihood of bleeding. Twin B weighed 6 pounds 6 ounces (2890 g), had Apgars of 8 and 9 at 1 and 5 minutes and a length of 18-1/2 inches. Twin B's umbilical cord also had 3 vessels. Cord blood was obtained from both umbilical cords after the time of the delivery. Stage III: The placenta delivered at 1132 hrs. It appeared to be a diamniotic dichorionic placenta and appeared intact and complete. It was sent for pathology evaluation. After delivery of the second twin patient was receiving Pitocin at the rate as above, uterus is palpated and found to be somewhat flac sarika and bleeding was moderate therefore Methergine 0.2 mg IM was given the right leg. Bleeding persisted and patient passed a couple size clots and decision was made to proceed to Cytotec 400 mcg buccally. With this good uterine tone was achieved and bleeding. Very slight hypotension was seen after passage of the second clot. With fluid hydration, Trendelenburg positioning patient recovered well. Shortly thereafter patient was returned to supine position with head up somewhat and did well. Estimated blood loss was 2 mL. Time Documentation
[2020-11-06] MEDS ORDERED: Benzocaine/Menthol 20%-0.5% Spray 78 GM Cannister TOP PRN (13:22)
[2020-11-06] MEDS ORDERED: Docusate Sodium 100 MG Cap PO PRN (13:22)
[2020-11-06] MEDS ORDERED: Witch Hazel Medicated Pads 40/Jar TOP PRN (13:22)
[2020-11-06] MEDS ORDERED: Methylergonovine 0.2 MG/1 ML Amp IM PRN (16:00)
[2020-11-06] MEDS: Ibuprofen 600 MG Tab PO PRN (16:08)
[2020-11-07] MEDS: Prenatal Multivitamin with Calcium/Folic Acid/Iron Tab PO SCH (09:16)
--- NOTE | 2020-11-07 10:30 | PCM48HPAN ---
Post Anesthesia Note - EVALUATION WITHIN 48HRS OF ANESTHETIC Vital Signs in Normal Range: Yes Patient Participated in Evaluation: Yes Respiratory Function Stable: Yes Airway Patent: Yes Cardiovascular Function Stable: Yes Hydration Status Stable: Yes Pain Control Satisfactory: Yes Nausea and Vomiting Control Satisfactory: Yes Mental Status Recovered: Yes Vital Signs: Last Vital Signs Temp 97.9 F 11/07/20 09:12 Pulse 76 11/07/20 09:12 Resp 16 11/07/20 09:12 BP 100/57 L 11/07/20 09:12 Pulse Ox 95 11/07/20 09:12
--- NOTE | 2020-11-07 10:47 | PCM.SN.2 ---
- Free Text/Narrative Note: note: PPD #1 Patient is doing well in the period. Minimal lochia, voiding well, ambulated without problems. Nursing without concerns. Patient is ambulating well. She has minimal bleeding. Patient is afebrile, vital signs are stable Abdomen is flat, soft, uterus is below the umbilicus and is firm and nontender. Legs are nontender. hemoglobin is 7.6. patient appears to be tolerating this very well. Her vital signs are stable. Assessment: 1. recovery going well. 2. anemia secondary to acute blood loss after delivery Plan: 1. Routine care. Patient be discharged home within the next 24-48 hours. 2. Iron supplementation on discharge. Time Documentation
[2020-11-07] MEDS: Ibuprofen 600 MG Tab PO PRN (16:17)
[2020-11-08] MEDS: Ibuprofen 600 MG Tab PO PRN ×2 (06:56→12:34)
[2020-11-08] MEDS ORDERED: Ferrous Sulfate 324 MG Tab.EC PO SCH (07:00)
[2020-11-08 09:56] VITALS: BP 104/83; PULSE 75
--- NOTE | 2020-11-08 10:38 | PCM.DCSUM1 ---
Discharge Summary - Hospital Course Diagnosis: Stroke: No - Discharge Data Discharge Date: 11/08/20 Discharge Disposition: Home, Self-Care 01 Condition: Good - Referral to Home Health Primary Care Physician: Shaggy Rosado MD - Patient Summary/Data Hospital Course: Stage I: Angelique is a 35-year-old 4 para 2-1-0-3 female at 37-0/7 weeks g estational age with diamniotic twin gestation and an CHAIM of 11/27/2020 admitted for induction of labor. She was admitted approximately 300 hours on 11/06/2020. Pitocin was initially started as the station was approximate -2-3 and the cervix was somewhat posterior. It was 1 to 2 cm, 80% effaced, soft. First baby was presenting cephalically. Pitocin was continued and increased to approximately 6 milliunits/h. With this patient had good contractions coming every 2 to 4 minutesstrong in intensity 5 to 60 seconds. The patient underwent an epidural for labor analgesia. She steadily made good progress to approximately 8 to 9 cm approximately at approximately 1030 hrs. At this time AROM was accomplished with the first clear fluid resulted. At that time patient was transferred to the operating room for delivery. The OR crew, anesthesia department at pediatrics department were informed of the patient's aggression and status. heart tones were reassuring throughout the course of labor. Vital signs were stable throughout the course of labor. Stage II: Angelique delivered twin A spontaneously at 1052 hrs. on 11/06/2020 in a right occiput anterior position. There was a shoulder cord which was reduced over the baby's body. Baby is completely delivered with gentle downward and then upward deliver the shoulders. The baby was placed on mom's abdomen and dried with warm blanket. Nose and mouth were bulb suctioned. The umbilical cord was allowed to pulsate for 2 to 3 minutes clamped and then was cut by the baby's father shad. Twin A's Cord blood was obtained after delivery of the second baby. The umbilical cord had 3 vessels. It was a large cord with a significant bout of Jacquelyn's jelly. 3 vessels were noted. A small second- degree laceration occurred. Twin a weight 6 pounds 15 ounces (3160 g), had Apgars of 7 and 9 at 1 and 5 minutes and had a length of 19 inches. Baby was taken to the warmer and to the attendance of Dr. Freeman. Twin B was then noted, after delivery of twin A to be in a vertex presentation. This was confirmed by exam and ultrasound. Pitocin rate was increased to 15 milliunits/mL and with time traction was returned. They were every 2-3 minutes and moderate in intensity. Bag of green remained intact at this time. They had was allowed to descend down and become well engaged in the pelvis at which time AROM was undertaken with resultant clear amniotic fluid. At 1132 hrs. on 11/06/2020 patient delivered twin B, a female infant, in a direct occiput anterior position. Shoulders were delivered with gentle downward then upward traction and baby was placed on mom's abdomen. She was dried with a warm blanket suction. At this time Pitocin was increased to 999 cc an hour with solution of 10 units in liter duration. This to facilitate increase in uterine tone and decrease likelihood of bleeding. Twin B weighed 6 pounds 6 ounces (2890 g), had Apgars of 8 and 9 at 1 and 5 minutes and a length of 18-1/2 inches. Twin B's umbilical cord also had 3 vessels. Cord blood was obtained from both umbilical cords after the time of the delivery. Stage III: The placenta delivered at 1132 hrs. It appeared to be a diamniotic dichorionic placenta and appeared intact and complete. It was sent for pathology evaluation. After delivery of the second twin patient was receiving Pitocin at the rate as above, uterus is palpated and found to be somewhat flaccid and bleeding was moderate therefore Methergine 0.2 mg IM was given the right leg. Bleeding persisted and patient passed a couple size clots and decision was made to proceed to Cytotec 400 mcg buccally. With this good uterine tone was achieved and bleeding. Very slight hypotension was seen after passage of the second clot. With fluid hydration, Trendelenburg positioning patient recovered well. Shortly thereafter patient was returned to supine position with head up somewhat and did well. Estimated blood loss was 2 mL. - Patient Instructions Diet: Usual Diet as Tolerated Driving: May Drive Today Showering/Bathing: May Shower Notify Provider of: Fever, Increased Pain, Swelling and Redness, Drainage, Nausea and/or Vomiting - Discharge Plan *PRESCRIPTION DRUG MONITORING PROGRAM REVIEWED*: No *COPY OF PRESCRIPTION DRUG MONITORING REPORT IN PATIENT ROB: No Home Medications: Home Meds Vit 90/Iron Fum/Folic [ Formula] 1 tab PO DAILY 02/07/14 [History] Omeprazole Magnesium [Prilosec] 1 pkt PO DAILY PRN 11/06/20 [History] Referrals: Shaggy Rosado MD [Primary Care Provider] - - Discharge Summary/Plan Comment DC Time >30 min.: No Total # of Minutes for Discharge Time: 30 - General Info Date of Service: 11/08/20 Functional Status: Reports: Pain Controlled - Review of Systems General: Reports: No Symptoms HEENT: Reports: No Symptoms Pulmonary: Reports: No Symptoms Cardiovascular: Reports: No Symptoms Gastrointestinal: Reports: No Symptoms Genitourinary: Reports: No Symptoms Musculoskeletal: Reports: No Symptoms Skin: Reports: No Symptoms Neurological: Reports: No Symptoms Psychiatric: Reports: No Symptoms - Patient Data Vitals - Most Recent: Last Vital Signs Temp 36.3 C 11/08/20 07:51 Pulse 75 11/08/20 07:51 Resp 14 11/08/20 07:51 BP 104/83 11/08/20 07:51 Pulse Ox 99 11/08/20 07:51 Weight - Most Recent: 77.882 kg I&O - Last 24 hours: Intake & Output 11/07/20 11/08/20 11/08/20 22:59 06:59 14:59 Intake Total 560 Balance 560 Lab Results - Last 24 hrs: Laboratory Results - last 24 hr 11/08/20 Range/Units 06:40 WBC 6.96 (3.98-10.04) K/mm3 RBC 2.55 L (3.98-5.22) M/mm3 Hgb 7.2 L* (11.2-15.7) gm/dl Hct 23.1 L (34.1-44.9) % MCV 90.6 (79.4-94.8) fl MCH 28.2 (25.6-32.2) pg MCHC 31.2 L (32.2-35.5) g/dl RDW Std Deviation 44.1 (36.4-46.3) fL Plt Count 157 L (182-369) K/mm3 MPV 9.9 (9.4-12.3) fl Neut % (Auto) 67.0 (34.0-71.1) % Lymph % (Auto) 20.5 (19.3-51.7) % [place] % (Auto) 10.1 (4.7-12.5) % Eos % (Auto) 1.6 (0.7-5.8) Baso % (Auto) 0.1 (0.1-1.2) % Neut # (Auto) 4.66 (1.56-6.13) K/mm3 Lymph # (Auto) 1.43 (1.18-3.74) K/mm3 [place] # (Auto) 0.70 H (0.24-0.36) K/mm3 Eos # (Auto) 0.11 (0.04-0.36) K/mm3 Baso # (Auto) 0.01 (0.01-0.08) K/mm3 Med Orders - Current: Current Medications Acetaminophen (Acetaminophen 325 Mg Tab) 650 mg PO Q4H PRN PRN Reason: mild pain or fever Benzocaine/Menthol (Benzocaine/Menthol 20%-0.5% [place] 78 Gm Cannister) 0 gm TOP ASDIRECTED PRN PRN Reason: Perineal Comfort Measure Last Admin: 11/06/20 16:06 Dose: 1 can Documented by: Docusate Sodium (Docusate Sodium 100 Mg Cap) 100 mg PO BID PRN PRN Reason: Constipation Last Admin: 11/08/20 06:56 Dose: 100 mg Documented by: Ferrous Sulfate (Ferrous Sulfate 324 Mg Tab.Ec) 324 mg PO WITHBREAKFAST [facility] Last Admin: 11/08/20 06:53 Dose: 324 mg Documented by: Oxytocin/Lactated Ringer's (Pitocin In Lr 20 Units/1,000 Ml) 20 unit in 1,000 mls @ 150 mls/hr IV TITRATE [facility] Last Admin: 11/06/20 13:00 Dose: 150 mls/hr Documented by: Ibuprofen (Ibuprofen 600 Mg Tab) 600 mg PO Q4H PRN PRN Reason: Mild pain or fever Last Admin: 11/08/20 06:56 Dose: 600 mg Documented by: Methylergonovine Maleate (Methylergonovine 0.2 Mg/1 Ml Amp) 0.2 mg IM Q4H PRN PRN Reason: Bleeding Last Admin: 11/06/20 11:47 Dose: 0.2 mg Documented by: Prenat Multivit/Stone/Iron/Folic Ac ( Multivitamin With Calcium/Folic Acid/Iron Tab) 1 each PO DAILY [facility] Last Admin: 11/07/20 09:16 Dose: 1 each Documented by: Jody Saenz (Jody Saenz Medicated Pads 40/Jar) 1 pad TOP ASDIRECTED PRN PRN Reason: Perineal Comfort Measure Last Admin: 11/06/20 16:06 Dose: 1 box Documented by: Discontinued Medications Acetaminophen (Acetaminophen 325 Mg Tab) 650 mg PO Q4H PRN PRN Reason: Pain (Mild 1-3) and fever Bupivacaine HCl (Bupivacaine 0.25% 10 Ml Sdv) 10 ml .ROUTE [facility] ONE Stop: 11/06/20 08:01 Calcium Carbonate/Glycine (Calcium Carbonate 500 Mg Tab.Chew) 1,000 mg PO Q2H PRN PRN Reason: Indigestion Citric Acid/Sodium Citrate (Citric Acid/Sodium Citrate Solution 30 Ml Cup) 30 ml PO ONETIME ONE Stop: 11/06/20 07:59 Diphenhydramine HCl (Diphenhydramine 50 Mg/Ml Sdv) 25 mg IVPUSH Q6H PRN PRN Reason: pruritis Ephedrine Sulfate (Ephedrine 50 Mg/Ml Sdv) 5 mg IVPUSH ASDIRECTED PRN PRN Reason: Hypotension Last Admin: 11/06/20 06:45 Dose: 5 mg Documented by: Ephedrine Sulfate (Ephedrine 50 Mg/Ml Sdv) Confirm Administered Dose 50 mg .ROUTE .STK-MED ONE Stop: 11/06/20 11:56 Fentanyl (Fentanyl 100 Mcg/2 Ml Sdv) 100 mcg EPIDUR Q3H PRN PRN Reason: Pain Last Admin: 11/06/20 06:26 Dose: 100 mcg Documented by: Fentanyl/Bupivacaine HCl (Bupivacaine/Fentanyl/Ns 100 Ml Bag) 100 ml EPIDUR ASDIRECTED PRN PRN Reason: Pain Last Admin: 11/06/20 06:27 Dose: 100 ml Documented by: Oxytocin/Lactated Ringer's (Pitocin In Lr 10 Units/1,000 Ml) 10 unit in 1,000 mls @ 12 mls/hr IV TITRATE [facility]; Protocol Last Titration: 11/06/20 11:00 Dose: 15 munits/min, 90 mls/hr Documented by: Oxytocin/Lactated Ringer's (Pitocin In Lr 10 Units/1,000 Ml) 10 unit in 1,000 mls @ 500 mls/hr IV .CONTINUOUS DAYANA Lactated Ringer's (Ringers, Lactated) 1,000 mls @ 100 mls/hr IV ASDIRECTED DAYANA Last Admin: 11/06/20 06:32 Dose: 100 mls/hr Documented by: Lactated Ringer's (Ringers, Lactated) Confirm Administered Dose 1,000 mls @ as directed .ROUTE .STK-MED ONE Stop: 11/06/20 10:45 Metoclopramide HCl (Metoclopramide 10 Mg/2 Ml Sdv) 10 mg IVPUSH ONETIME ONE Stop: 11/06/20 07:58 Misoprostol (Misoprostol 200 Mcg Tab) 400 mcg PO Q3H [facility] Stop: 11/06/20 15:31 Last Admin: 11/06/20 16:07 Dose: 400 mcg Documented by: Nalbuphine HCl (Nalbuphine 10 Mg/1 Ml Vial) 10 mg IVPUSH Q2H PRN PRN Reason: Pain Ondansetron HCl (Ondansetron 4 Mg/2 Ml Sdv) 4 mg IVPUSH Q4H PRN PRN Reason: Nausea/Vomiting Last Admin: 11/06/20 07:32 Dose: 4 mg Documented by: Sodium Chloride (Sodium Chloride 0.9% 10 Ml Syringe) 10 ml FLUSH ASDIRECTED PRN PRN Reason: Keep Vein Open
[2020-11-08] MEDS: Prenatal Multivitamin with Calcium/Folic Acid/Iron Tab PO SCH (12:34)
== END 2020-11-08 13:05 | disposition home or self-care (01) | DRG 560 ==
LOC: JD.OBCHECK 03:04 → JD.OB 03:05 → OBSVTOIN 10:52 → JD.OB 10:53
PROVIDERS: ADMIT Obstetrics & Gynecology; ATTEND Obstetrics & Gynecology
PROC: 10E0XZZ Delivery of Products of Conception, External Approach (ICD-10-PCS; principal; 2020-11-06)
PROC: 3E033VJ Introduction of Other Hormone into Peripheral Vein, Percutaneous Approach (ICD-10-PCS; 2020-11-06)
PROC: 10907ZC Drainage of Amniotic Fluid, Therapeutic from Products of Conception, Via Natural or Artificial Opening (ICD-10-PCS; 2020-11-06)
PROC: 3E0R3BZ Introduction of Anesthetic Agent into Spinal Canal, Percutaneous Approach (ICD-10-PCS; 2020-11-06)
DX: O30.043 Twin pregnancy, dichorionic/diamniotic, third trimester (principal); Z3A.37 37 weeks gestation of pregnancy; Z37.2 Twins, both liveborn; O70.1 Second degree perineal laceration during delivery; D62 Acute posthemorrhagic anemia; O90.81 Anemia of the puerperium; Z88.0 Allergy status to penicillin; Z88.2 Allergy status to sulfonamides; Z87.59 Personal history of other complications of pregnancy, childbirth and the puerperium
CPT/HCPCS: 01967; 36415; 51701; 51702; 59025; 59409; 85025; 85027; 86592; 86850; 86900; 86901; A9270-GY; J2210; J2405; J2590; J3010; J3490; J7120; U0002

== ENCOUNTER 2021-06-14 07:39 | Day surgery (SDC) | payer BC ==
[~2021-06-14 07:39] MED LIST changes: +Bupivacaine 0.5%/EPINEPHrine 1:200,000 50 ML MDV ONE; +Lactated Ringers 1,000 ML IV SCH; +Lidocaine 1% 4 ML ONE; +Lidocaine 1%/Sod Bicarbonate in NS 8.4% 1 ML Syringe IDERM PRN; +Midazolam 1 MG/ML 2 ML SDV ONE; +Propofol 200 MG/20 ML SDV ONE; +Sodium Chloride 0.9% 10 ML Syringe FLUSH PRN; +Sodium Chloride 0.9% 10 ML Syringe FLUSH SCH; +ceFAZolin 1 GM Vial ONE; -ePHEDrine 50 MG/ML SDV ONE; +fentaNYL 100 MCG/2 ML SDV ONE
[2021-06-14] MEDS ORDERED: Ondansetron 4 MG/2 ML SDV ONE (08:12)
[2021-06-14] MEDS ORDERED: Ketorolac 30 MG/ML SDV ONE (08:12)
[2021-06-14] MEDS ORDERED: diphenhydrAMINE 50 MG/ML SDV ONE (08:12)
[2021-06-14] MEDS ORDERED: Metoclopramide 10 MG/2 ML SDV ONE (08:13)
[2021-06-14] MEDS ORDERED: fentaNYL 100 MCG/2 ML SDV ONE (09:03)
[2021-06-14] MEDS ORDERED: diphenhydrAMINE 50 MG/ML SDV IVPUSH PRN (09:14)
[2021-06-14] MEDS ORDERED: Ondansetron 4 MG/2 ML SDV IVPUSH PRN (09:14)
[2021-06-14] MEDS ORDERED: fentaNYL 100 MCG/2 ML SDV IVPUSH PRN (09:14)
[2021-06-14] MEDS ORDERED: HYDROmorphone 0.5 MG/0.5 ML Syringe IVPUSH PRN (09:14)
[2021-06-14] MEDS ORDERED: oxyCODONE 5 MG Tab PO ONE (11:00)
[2021-06-14 16:39] VITALS: BP 97/61; PULSE 53
== END 2021-06-14 11:13 | disposition home or self-care (01) ==
LOC: JD.SDS 07:39
PROVIDERS: ATTEND Surgery
DX: K42.9 Umbilical hernia without obstruction or gangrene (principal); L03.90 Cellulitis, unspecified; H90.12 Conductive hearing loss, unilateral, left ear, with unrestricted hearing on the contralateral side; F41.9 Anxiety disorder, unspecified; Z88.0 Allergy status to penicillin; Z88.2 Allergy status to sulfonamides; Z90.49 Acquired absence of other specified parts of digestive tract; Z79.899 Other long term (current) drug therapy
CPT/HCPCS: 49585; 81025; A9270; J0690; J1200; J1885; J2250; J2405; J2704; J2710; J2765; J3010; J3490; J7120